=== PATIENT | female | born 1990 | race Caucasian/White ===

== ENCOUNTER 2018-01-26 10:29 | Emergency (ER) | payer BC ==
[2018-01-26 10:35] VITALS: BP 130/95
--- NOTE | 2018-01-26 11:45 | ER Document Report ---
ED General - General Chief Complaint: Rash Stated Complaint: RASH Time Seen by Provider: 01/26/18 11:15 TRAVEL OUTSIDE OF THE [place] IN LAST 30 DAYS: No - HPI Notes: Patient is 27-year-old female that presents to the emergency department for chief complaint of rash. Patient states she has had a rash on her left hand for the last few years and over the last few months she has noticed similar rash on her lower abdomen. She states occasionally gets irritated and inflamed. She denies any pain on the rash. She denies any injury or trauma. She denies any drainage vesicles or pustules. She denies any contact to new detergents. She states she has been told previously she had eczema but that was when she was much younger. Past Medical History: Eczema Past Surgical History: Negative Social History: Denies drugs alcohol and tobacco Family History: Reviewed and noncontributory for presenting illness Allergies: Reviewed, see documented allergy list. REVIEW OF SYSTEMS: CONSTITUTIONAL : No fever No chills No diaphoresis No recent illness EENT: No vision changes No congestion No sore throat CARDIOVASCULAR: No chest pain No palpitations RESPIRATORY: No shortness of breath No cough No difficulty breathing GASTROINTESTINAL: No abdominal pain No nausea No vomiting No diarrhea GENITOURINARY: No dysuria No hematuria No difficulty urinating MUSCULOSKELETAL: No back pain No leg pain No arm pain SKIN: rashes No lesions LYMPHATIC: No swollen, enlarged glands. NEUROLOGICAL: No lightheadedness No headache No weakness No paresthesias PSYCHIATRIC: No anxiety No depression PHYSICAL EXAMINATION: Vital signs reviewed, nursing noted reviewed. GENERAL: Well-appearing, well-nourished and in no acute distress. HEAD: Atraumatic, normocephalic. EYES: Eyes appear normal, extraocular movements intact, sclera anicteric, conjunctiva are normal. ENT: nares patent, oropharynx clear without exudates. Moist mucous membranes. NECK: Normal range of motion, supple without lymphadenopathy LUNGS: Breath sounds clear to auscultation bilaterally and equal. No wheezes rales or rhonchi. HEART: Regular rate and rhythm without murmurs ABDOMEN: Soft, nontender, normoactive bowel sounds. No rebound, guarding, or rigidity. No masses appreciated. EXTREMITIES: Nontender, good range of motion, no pitting or edema. NEUROLOGICAL: No focal neurological deficits. Moves all extremities spontaneously Motor and sensory grossly intact on exam. PSYCH: Normal mood, normal affect. SKIN: Warm, Dry, normal turgor, dry erythematous scaly rash to dorsal left hand and lower abdomen, no vesicles or pustules, no calor, no induration or areas of fluctuance, no open wounds - Related Data Allergies/Adverse Reactions: hydrocodone Allergy (Intermediate, Verified 01/26/18 10:56) Hives Past Medical History - Social History Smoking Status: Never Smoker Chew tobacco use (# tins/day): No Frequency of alcohol use: Occasional Drug Abuse: None Family History: Reviewed & Not Pertinent Patient has suicidal ideation: No Patient has homicidal ideation: No Renal/ Medical History: Denies: Hx Peritoneal Dialysis Review of Systems - Review of Systems Notes: Dictated Physical Exam - Vital signs Vitals: Temp Pulse Resp BP Pulse Ox 98.1 F 71 18 130/95 H 98 01/26/18 10:34 01/26/18 10:34 01/26/18 10:34 01/26/18 10:34 01/26/18 10:34 - Notes Notes: Dictated Course - Re-evaluation Re-evalutation: 01/26/18 11:44 Vitals reviewed. Nursing notes reviewed. Patient's rash does not appear infected. It has been ongoing for the last few months and further workup in the ED is not indicated. It appears consistent with eczema. Patient will begin using moisturizing cream on her areas of eczema. She will be referred to family medicine for follow-up of her chronic rash. Discharged in stable condition. - Vital Signs Vital signs: Temp Pulse Resp BP Pulse Ox 98.1 F 71 18 130/95 H 98 01/26/18 10:34 01/26/18 10:34 01/26/18 10:34 01/26/18 10:34 01/26/18 10:34 Discharge - Discharge Clinical Impression: Eczema Qualifiers: Eczema type: unspecified Qualified Code(s): L30.9 - Dermatitis, unspecified Condition: Stable Disposition: HOME, SELF-CARE Instructions: Atopic Dermatitis (Eczema) ([facility]), Family Physicians / Practices Additional Instructions: Please return to the emergency department if you have any worsening, or concern of your symptoms. Please return to the emergency department if you develop chest pain, difficulty breathing, severe abdominal pain, or ongoing vomiting. Please follow-up with your primary care physician in 2-3 days and any other recommended physicians. If prescribed, take all medications as directed. If you have any questions or concerns do not hesitate to return the emergency department for evaluation. []
== END 2018-01-26 12:16 | disposition home or self-care (01) ==
LOC: ER 10:29
DX: L30.9 Dermatitis, unspecified (principal); Z88.5 Allergy status to narcotic agent
CPT/HCPCS: 99283